=== PATIENT | female | born 1950 | race Caucasian/White ===

== ENCOUNTER 2020-08-02 15:14 | Emergency (ER) | payer MEDICARE, OTHER, SELFPAY ==
[2020-08-02 15:15] VITALS: BP 151/80; PULSE 91; RESP 18; TEMP 37; O2SAT 98; BMI 29.4
--- NOTE | 2020-08-02 15:32 | ED.VIS.LOWEX ---
HPI History of Present Illness Chief Complaint: Fall Informant: patient and spouse/S.O. Occured/Mechanism Mechanism/Context: Yes injury, Yes fall and Yes other see comment below Comment: Patient apparently fell approximately 2 weeks ago. The left knee began to hurt and swell 5 days ago. Onset/Context/Timing Onset: Days (5 days ago) Context: Gradual Onset Timing: Continuous Quality of Pain: Dull and Aching Location: Left knee Current Severity: Mild Maximum Severity: Moderate Worsened by: Movement/use Relieved by: Nothing Associated Symptoms Associated Symptoms: Negative for Parasthesia, Weakness and Loss of Funtion Narrative Narrative: Patient is a 69-year-old woman with history of osteoarthritis and history of degeneration of her meniscus left knee based on MRI that was performed greater than a decade ago. She has not seen an orthopedic surgeon in 10 years. She has had the knee injected several times and arthrocentesis. She denies history of gout or pseudogout. She denies fever, chills night sweats. She does not remember how she fell. Apparently she lost her balance on rocks. She was pivoting at the time according the . She has no other complaints. Prior similar symptoms: Yes Recent Illness/Hospitalization: No PFSH PFSH Medical History Asthma DVT (deep venous thrombosis) GERD (gastroesophageal reflux disease) Hypertension Osteoarthritis Pulmonary embolism Pulmonary fibrosis Rheumatoid arthritis Home Medications cholecalciferol (vitamin D3) [Vitamin D3] 25 mcg PO DAILY 08/02/20 [History Last Taken Unknown] fluoxetine 20 mg PO DAILY 08/02/20 [History Last Taken Unknown] leflunomide 20 mg PO QODAY 08/02/20 [History Last Taken Unknown] metoprolol succinate 25 mg PO DAILY 08/02/20 [History Last Taken Unknown] omega-3 fatty acids-vitamin E [Fish Oil] 1 cap PO DAILY 08/02/20 [History Last Taken Unknown] rivaroxaban [Xarelto] 20 mg PO DAILY 08/02/20 [History Last Taken Unknown] spironolactone 25 mg PO DAILY 08/02/20 [History Last Taken Unknown] trazodone 100 mg PO QHS 08/02/20 [History Last Taken Unknown] vitamin A-vitamin C-vit E-min [Ocuvite] 1 tab PO DAILY 08/02/20 [History Last Taken Unknown] Allergy/AdvReac Type Severity Reaction Status Date / Time Sulfa (Sulfonamide Allergy Hives Verified 08/02/20 15:32 Antibiotics) sulfamethoxazole Allergy Hives Verified 08/02/20 15:32 [From Bactrim] trimethoprim [From Bactrim] Allergy Hives Verified 08/02/20 15:32 latex AdvReac Rash Verified 08/02/20 15:32 Surgical History History of appendectomy History of hysterectomy Social History (Updated 08/02/20 @ 15:[address] Stef Singh MD) household members: spouse housing: house current occupational status: retired Smoking Status: Never smoker alcohol intake: current alcohol intake frequency: other substance use type: does not use ROS ROS ED Constitutional Constitutional ED: Denies chills, fever(s), subjective or sweats Musculoskeletal Musculoskeletal: Reports other Details: Complains of left knee pain. ; Denies arthralgias, back pain, myalgias or neck pain Integumentary Denies Abrasions or rash Neurologic Neurologic: Denies paresthesias or weakness Hematologic/Lymphatic Hematologic/Lymphatic: Denies easy bleeding or easy bruising EXAM Physical Exam Const Vital Signs: 08/02/20 15:15 Temperature 98.6 F Temperature Source Temporal Pulse Rate 91 Respiratory Rate 18 Blood Pressure 151/80 H Blood Pressure Mean 103 Pulse Ox 98 Oxygen Delivery Method Room Air Positive well nourished, well developed and obese General Appearance ED: well developed Nutritional Appearance: obese HEENT normocephalic and atraumatic Eyes PERRL Eyes Narrative: Extract muscle intact. Sclerae anicteric. Resp normal respiratory effort Cardio regular rate and regular rhythm Extremity full ROM; Negative for normal to inspection Extremity Narrative: There is swelling of the left knee. The patella is not ballotable. There is a small effusion. There is medial joint line tenderness. There is discomfort with varus stressing; however, there is no laxity with varus or valgus stressing. Sami's test cause pain but there was no laxity. Modified Lindsey's test was negative. General Extremety ED: Negative for cyanosis, edema or weight-bearing difficulty General Extremity: Negative for cyanosis, edema or weight-bearing difficulty Neuro oriented x3, CN's II-XII intact bilaterally and moves all extremities Sensorium / Orientation: alert Motor Exam: strength 5/5 throughout Psych mental status grossly normal Skin no wounds Lesions: no lesions Rashes: no rashes MDM MDM MDM Narrative Medical decision making narrative: With history of fall and effusion this may represent meniscus injury. This may also represent osteoporosis. Doubt gout or pseudogout since she has full active range of motion extension to 180 degrees and flexion past 90 degrees with no hesitation or discomfort. Patient was offered pain medicine. She declined. Radiography X-Ray: - (4 view x-ray of the knee reveals asymmetry of the joint and mild degenerative changes. There is no evidence of fracture, subluxation or dislocation. There is no evidence of atherosclerotic disease.) Discharge Plan Triage Chief Complaint: Fall ED Provider: Stef Singh Dx/Rx/DC Orders Clinical Impression: Effusion of knee joint, left, Osteoarthritis of left knee Prescriptions: No Action leflunomide 20 mg Tablet 20 mg PO QODAY RF: 0 spironolactone 25 mg Tablet 25 mg PO DAILY RF: 0 trazodone 100 mg Tablet 100 mg PO QHS RF: 0 metoprolol succinate 25 mg Tablet Extended Release 24 Hr 25 mg PO DAILY RF: 0 fluoxetine 20 mg Capsule 20 mg PO DAILY RF: 0 cholecalciferol (vitamin D3) [Vitamin D3] 25 mcg (1,000 unit) Capsule 25 mcg PO DAILY RF: 0 Ocuvite Tablet 1 tab PO DAILY RF: 0 Fish Oil 1,000 mg Capsule 1 cap PO DAILY RF: 0 Xarelto 20 mg Tablet 20 mg PO DAILY RF: 0 Primary Care Provider: NOT,DEFINED Referrals: Aayush Mendez DO [STAFF PHYSICIAN] - 1 Week NOT,DEFINED [Primary Care Provider] - Disposition Disposition: Home, self care
--- NOTE | 2020-08-02 15:50 | RAD_ITS ---
STUDY: X-RAY - LEFT KNEE REASON FOR EXAM: Female, 69 years old. Injury/Pain TECHNIQUE: 4 view(s) of the knee. COMPARISON: None. FINDINGS: Normal visualized distal femur. Normal visualized proximal tibia and fibula. Normal proximal tibiofibular articulation. There is no demonstrated fracture. There is moderate to severe degenerative arthrosis of the medial femorotibial compartment with moderate joint space narrowing. Normal lateral femorotibial compartment. There is mild degenerative arthrosis of the patellofemoral articulation. There is a moderate volume joint effusion. The soft tissue structures are unremarkable. RAD/Knee 4 or More Views IMPRESSION: 1. Degenerative arthrosis. Moderate size joint effusion. Electronically Signed: Jamel Walker MD at 16:27 EDT , Service support ,
[2020-08-02 16:28] VITALS: PULSE 87; RESP 16; O2SAT 97
== END 2020-08-02 16:30 | disposition home or self-care (01) ==
LOC: ED 16:24
PROVIDERS: Emergency Provider Emergency Medicine
DX: M25.462 Effusion, left knee (principal); M17.12 Unilateral primary osteoarthritis, left knee; E66.9 Obesity, unspecified; I10 Essential (primary) hypertension; M06.9 Rheumatoid arthritis, unspecified; Z79.899 Other long term (current) drug therapy
CPT/HCPCS: 73564; 99282

== ENCOUNTER → 2023-10-06 | Outpatient (CLI) | payer MEDICARE, OTHER, SELFPAY ==
--- NOTE | 2023-10-06 15:39 | MRI_ITS ---
STUDY: MRI BRAIN WITH AND WITHOUT CONTRAST (ATTENTION INTERNAL AUDITORY CANALS - I.A.C.''s) REASON FOR EXAM: Female, 72 years old. ASYMMETRIC HEARING LOSS, ATTN IAC''S TECHNIQUE: Standardized multiplanar fat and water weighted pulse sequences were obtained. IV 15ml clariscan was administered for the contrast portion of the examination. COMPARISON: None. FINDINGS: Normal bilateral temporal bones. Normal bilateral internal auditory canals. There is no demonstrated intracanalicular or cisternal vestibular schwannoma (acoustic neuroma). There is no enhancement of the bilateral VIIth or VIIIth cranial nerves. Normal bilateral cochlea, vestibules and semicircular canals. Normal size of the ventricles and extra-axial spaces for the patient''s age. Normal white matter tracts of the supratentorial brain. There is no evidence for recent intracranial ischemia or other cause of cytotoxic edema on diffusion weighted imaging (DWI). Normal bilateral basal ganglia. Normal thalami. Normal flow voids within the major intracranial circulation suggesting patency by spin echo criteria. Normal venous enhancement. There is no enhancing intra-axial or extra-axial abnormality. There is no extra-axial fluid accumulation. Normal sella turcica, pituitary gland, infundibular stalk, optic chiasm and hypothalamus. Normal tectal plate and pineal gland. Normal midbrain, paula and medulla. Normal cerebellum. Normal basal cisterns. There are bilateral ocular lens implants with otherwise normal intraorbital contents. Normal visualized paranasal sinuses. Normal calvarium and skull base. Normal visualized soft tissue structures. Normal visualized upper cervical spine. MRI/Brain W/WO Contrast IMPRESSION: Normal unenhanced and enhanced MRI of the bilateral internal auditory canals (I.A.C''s). Electronically Signed: Kevin Luciano MD at 14:04 EDT ,
[2023-10-06 16:10] LABS: CREATININE FINGERSTICK < 1.0 mg/dL (0.55-1.02); EGFR FINGERSTICK > 60.0000 mL/min (>60)
== END | disposition home or self-care (01) ==
LOC: MRI 15:32
PROVIDERS: Referring Provider Otolaryngology; Visit Provider Otolaryngology
DX: Z01.812 Encounter for preprocedural laboratory examination (principal); H90.A22 Sensorineural hearing loss, unilateral, left ear, with restricted hearing on the contralateral side
CPT/HCPCS: 70553; A9575